=== PATIENT | male | born 1955 | race Caucasian/White ===

== ENCOUNTER 2019-10-08 14:38 | Outpatient (CLI) | payer OTHER, SELFPAY ==
[2019-10-08 14:56] LABS: Basophils Percent Auto 0.7 % (0.2-1.2); Eosinophils Absolute Auto 0.2 K/mm3 (0-0.3); Eosinophils Percent Auto 2.8 % (0-4.4); Hematocrit 46.3 % (42.0-52.0); Hemoglobin 15.5 g/dL (14.0-18.0); Immature Granulocyte Absolute 0.01 K/mm3 (0.00-0.031); Immature Granulocyte Percent A 0.2 % (0-0.5); Lymphocytes Absolute Auto 1.81 K/mm3 (0.9-3.2); Lymphocytes Percent Auto 30.1 % (18.3-44.2); Mean Corpuscular HGB Conc 33.5 g/dl (32-36); Mean Corpuscular Hemoglobin 29.9 pg (26-34); Mean Corpuscular Volume 89.2 fl (80-100); Mean Platelet Volume 11.6 fl (7.4-10.4); Monocytes Absolute Auto 0.5 K/mm3 (0.1-0.6); Monocytes Percent Auto 7.8 % (2.6-8.5); Neutrophils Absolute Auto 3.5 K/mm3 (1.3-6.7); Neutrophils Percent Auto 58.4 % (45.5-73.1); Platelet Count Result 188 k/mm3 (150-375); Red Blood Count 5.19 M/mm3 (4.6-6.20); Red Cell Distribution Width 13.1 % (11.5-14.5)
[2019-10-08 16:15] LABS: Alanine Aminotransferase 7 U/L (4-50); Albumin Level 4.9 g/dL (3.5-5.1); Alkaline Phosphatase 132 U/L (38-126); Aspartate Amino Transferase 23 U/L (17-59); Bilirubin,Total 0.7 mg/dL (0.2-1.3); Blood Urea Nitrogen 8 mg/dL (9-20); Calcium 9.8 mg/dL (8.4-10.2); Carbon Dioxide 26 mmol/L (22-30); Chloride 99 mmol/L (98-107); Estimated Glomerular Filt Rate > 60; Glucose 86 mg/dL (75-110); Potassium 4.2 mmol/L (3.4-5.0); Sodium 141 mmol/L (137-145)
== END 2019-10-08 14:39 | disposition home or self-care (01) ==
LOC: ANHLAB 14:41
PROVIDERS: PCP Psychiatry & Neurology Neurology; Visit Provider Internal Medicine Hematology & Oncology
DX: Z85.118 Personal history of other malignant neoplasm of bronchus and lung (principal)
CPT/HCPCS: 36415; 80053; 85025

== ENCOUNTER → 2019-10-15 12:25 | Outpatient (CLI) | payer OTHER, SELFPAY ==
--- NOTE | ~2019-10-15 | CT_ITS ---
EXAMINATION: CT chest abdomen pelvis w con EXAM DATE: 10/15/2019 13:29 INDICATION: Lung cancer. Shortness of breath, chest pain. Cough. COPD. Left-sided abdominal pain. TECHNIQUE: Spiral CT of the chest, abdomen and pelvis was performed following intravenous injection o f 100 mL Omnipaque 350. Axial, coronal and sagittal images were reviewed. Coronal maximum intensity pixel images of chest reviewed. The dose-length product (DLP) for this examination was 413.19 mGy-c m. The exposure was tailored according to patient size (auto mA exposure control), and iterative rec onstruction (ASIR) was used as additional dose reduction technique. There is no prior study for cal[place]. FINDINGS: CHEST: There is moderate to severe hyperinflation and emphysema. Right apical opacity, linear radiat ions extending to the apex without focal masslike central region. Potentially could be treated lung c ancer given history provided. Otherwise scarring, correlate with prior imaging. No central pulmonary emboli. There are no pleural or pericardial effusions. Tracheobronchial tree is patent. There is no mediastinal, hilar or axillary lymphadenopathy. There is no pneumothorax. Heart normal in siz e. There is mild coronary arterial calcification, arterial sclerosis. ABDOMEN PELVIS: The liver, spleen, adrenal glands and pancreas are unremarkable. Gallbladder is unre markable. No biliary obstruction. Portal and splenic veins are patent. Kidneys enhance symmetrical ly. There is no hydronephrosis. There is a cyst in each kidney, larger on the right measuring 2 cm. The prostate is unremarkable. The bladder is unremarkable. There is no retroperitoneal or pelvic l ymphadenopathy. There is moderate scattered arteriosclerotic disease. The appendix is normal. The stomach and small bowel are unremarkable. There is expected amount of c olonic stool. There is mild scattered colonic diverticulosis. There is no adjacent inflammatory mcgee ge to suggest diverticulitis. There are no osteoblastic or osteolytic lesions identified. There are o ld rib fractures. There is right hip gamma nail. IMPRESSION: 1. No acute chest abdomen pelvis findings. 2. Right apical predominantly linear opacity, scarring versus treated cancer. Smaller amount of left apical scarring. 3. Moderate to severe emphysema and hyperinflation. 4. Mild colonic diverticulosis. Reviewed, dictated and finalized at location A. NER
[2019-10-15 13:14] LABS: Estimated Glomerular Filt Rate > 60
== END ==
PROVIDERS: Visit Provider Internal Medicine Hematology & Oncology
DX: J43.9 Emphysema, unspecified (principal); K57.30 Diverticulosis of large intestine without perforation or abscess without bleeding; Z85.118 Personal history of other malignant neoplasm of bronchus and lung
CPT/HCPCS: 36415; 71260; 74177; Q9967

== ENCOUNTER 2021-01-23 10:31 | Outpatient (CLI) | payer MEDICARE, SELFPAY ==
--- NOTE | ~2021-01-23 | MR_ITS ---
EXAMINATION: MR cervical spine wo con EXAM DATE: 01/23/2021 11:46 INDICATION: G95.9 - Disease of spinal cord, unspecified. Cervical myelopathy, right-sided neck pain. TECHNIQUE: Multi-sequential, multiplanar MR images of the cervical spine were obtained without contra st. Axial T2, axial T2 MERGE sequence. Sagittal T1, T2, T2 fat saturation images also obtained. Th ere is no prior study for comparison. FINDINGS: There is moderate disc disease C4-C6, mild to moderate at C3-4. The spinal cord signal int ensity and intrinsic morphology is normal. Cervicomedullary junction is normal in appearance. The melissa tebral bodies are aligned in the AP dimension. There are no suspicious marrow signal abnormalities. P araspinal soft tissue is unremarkable. Level by level evaluation: C2-C3: Disc does not extend beyond the endplate margin. Uncovertebral joint arthropathy: None. Facet joint arthropathy: Mild to moderate bilateral. Neural foraminal stenosis: No stenosis. Central canal stenosis: No stenosis. C3-C4: There is a mild diffuse disc bulge. Uncovertebral joint arthropathy: Moderate right, mild to moderate left. Facet joint arthropathy: Moderate left, mild to moderate right. Neural foraminal stenosis: Moderate right, mild to moderate left. Central canal stenosis: No stenosis. C4-C5: There is a mild to moderate diffuse disc bulge. Uncovertebral joint arthropathy: Moderate to severe right, moderate left. Facet joint arthropathy: Moderate left, mild to moderate right. Neural foraminal stenosis: Moderate bilateral. Central canal stenosis: Mild. C5-C6: There is a mild diffuse disc bulge asymmetric to the right Uncovertebral joint arthropathy: Moderate to severe right,. Facet joint arthropathy: Moderate bilateral. Neural foraminal stenosis: Moderate to severe right, mild to moderate left. Central canal stenosis: Mild. C6-C7: There is a mild diffuse disc bulge. Uncovertebral joint arthropathy: Moderate right, mild to moderate left. Facet joint arthropathy: Moderate bilateral. Neural foraminal stenosis: Moderate to severe right, mild left. Central canal stenosis: Mild. C7-T1: Disc does not extend beyond the endplate margin. Uncovertebral joint arthropathy: None. Facet joint arthropathy: Moderate. Neural foraminal stenosis: Mild bilateral. Central canal stenosis: No stenosis. IMPRESSION: 1. Advanced mid cervical spondylosis. 2. Normal cord signal. Reviewed, dictated and finalized at location B.
== END 2021-01-23 10:32 | disposition home or self-care (01) ==
PROVIDERS: Visit Provider Psychiatry & Neurology Neurology
DX: G95.9 Disease of spinal cord, unspecified (principal); M47.812 Spondylosis without myelopathy or radiculopathy, cervical region
CPT/HCPCS: 72141

== ENCOUNTER 2022-11-12 13:59 | Outpatient (CLI) | payer MEDICARE, MEDICAID, SELFPAY ==
--- NOTE | ~2022-11-12 | PE_ITS ---
EXAMINATION: PET skull to mid thigh DATE: 11/12/2022 15:59 INDICATION: Solitary pulmonary nodule TECHNIQUE: Blood glucose level was 91 mg/dL. 8.590 mCi of 18-fluorodeoxyglucose (18-FDG) was administ ered i.v. Low dose computed tomography (CT) images were acquired from the base of the brain to the pr oximal thighs for attenuation correction and anatomic localization. Positron emission tomography (PET ) images were acquired in the same distribution beginning 61 minutes after injection. Images includin g fused PET/CT images were reconstructed in axial, coronal, and sagittal planes. Automated exposure c ontrol technique was employed. The dose-length product was 547.84mGy-cm. COMPARISON: CT chest, abdomen and pelvis dated 10/15/2019 FINDINGS: Head/neck: There is symmetric increased activity in the oral cavity, palatine and lingual tonsils, submandibular glands, laryngeal muscles, ocular muscles and anterior cervical paraspinal muscles without CT correl ate, likely physiologic. There is an asymmetric small focus of more prominent increased uptake with m aximal SUV of 6.1 cm at the infra auricular posterior right parotid gland situated between the tip of the mastoid and the right mandibular ramus. No pathologically enlarged cervical lymphadenopathy or o ther suspicious foci of increased . FDG uptake in the visualized head or neck. Chest: Moderate emphysema with mild biapical pleural-parenchymal scarring. No interval change in approximate ly 2.5 cm diameter spiculated some solid opacity at the right apex which is without increased FDG upt donita. Small region of linear atelectasis/scarring at the left apex cephalad of an unchanged 3-4 mm whi ch is also without significant increased FDG uptake with maximal SUV of 1.4. Mild dependent atelectas is in the right lower lobe. No other suspicious pulmonary nodules, pneumonia, pulmonary edema or pleu ral effusion. Heart size is normal. No pericardial effusion. No pathologically enlarged or abnormally FDG avid thoracic lymphadenopathy. Abdomen/pelvis/proximal thighs: Physiologic renal accumulation and excretion of FDG activity in the kidneys, bladder and along portio ns of ureters. Photopenic defects associated with bilateral low-attenuation renal cysts the larger at the lower pole of the right kidney measuring 2.5 cm. A few hepatic and multiple splenic calcific les ions consistent with old granulomatous disease. Normal degree and heterogenous pattern of increased uptake throughout the liver without radiologic correlate or dominant FDG avid lesion. The gallbladder , pancreas and bilateral adrenal glands are normal. Mild uptake scattered throughout the bowels witho ut radiologic correlate, also likely physiologic. No other abnormal foci of increased FDG uptake or p athologically enlarged lymphadenopathy in the abdomen, pelvis or proximal thighs. Musculoskeletal: Likely physiologic uptake involving the intrinsic musculature of the bilateral hands. Old healed inte rtrochanteric fracture the proximal right femur with antegrade intramedullary marty and interlocking fe moral neck screw fixation. Small sclerotic bone island at the left posterior iliac spine without yuliana esponding FDG uptake. No suspicious lytic, blastic or FDG avid bone lesions. IMPRESSION: 1. Moderate emphysema with no abnormal FDG uptake associated with unchanged subtle solid spiculated o pacity right apex and 3-4 mm nodule at the left apex which are unchanged since 10/15/2019 favoring a be nign etiology. Recommend continued follow-up with low-dose noncontrast chest CT in one year. 2. Small focus of asymmetric increased uptake at the posterior right parotid gland without evident mo re focal correlate consider further evaluation with either ultrasound or contrast-enhanced CT of the neck. Reviewed, dictated and finalized at location A. Electronic
[2022-11-12 14:29] LABS: Glucose Point of Care 91 mg/dl (65-105)
== END 2022-11-12 14:00 | disposition home or self-care (01) ==
PROVIDERS: PCP Family Medicine Sports Medicine; Visit Provider Internal Medicine Pulmonary Disease
DX: R91.1 Solitary pulmonary nodule (principal); J43.9 Emphysema, unspecified; R91.8 Other nonspecific abnormal finding of lung field
CPT/HCPCS: 78815; A9552